=== PATIENT | female | born 1960 | race Hispanic/Latino ===

== ENCOUNTER 2017-05-04 14:07 | Outpatient (CLI) | payer OTHER ==
--- NOTE | 2017-05-04 16:17 | XRay Report ---
XRAY BILATERAL KNEE FOUR VIEWS EACH: 05/04/17 14:07:00 CLINICAL: Bilateral knee pain. FINDINGS: Right: Moderate osteopenia. Status post total knee replacement with normal appearance of the prosthesis. No fracture or dislocation. No joint effusion. Normal soft tissues. Normal soft tissues. Left: Moderate osteopenia. Osteoarthritis of the medial joint space with loss of the joint space and osteophytes. Widening of the lateral joint space. No fracture or dislocation. Patellofemoral joint osteoarthritis with osteophytes. No joint effusion.Normal soft tissues. IMPRESSION: Status post right total knee replacement. 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
== END 2017-05-04 14:08 | disposition home or self-care (01) ==
LOC: SPVIMAG 14:07
PROVIDERS: ATTEND Orthopaedic Surgery Sports Medicine
DX: M17.12 Unilateral primary osteoarthritis, left knee (principal); M85.861 Other specified disorders of bone density and structure, right lower leg; M85.862 Other specified disorders of bone density and structure, left lower leg; Z96.651 Presence of right artificial knee joint

== ENCOUNTER 2017-09-12 12:40 | Outpatient (CLI) | payer OTHER ==
--- NOTE | 2017-09-12 16:54 | XRay Report ---
XRAY LEFT KNEE 3 VIEWS: 09/12/17 12:40:00 CLINICAL: Status post total knee replacement. FINDINGS: Since 05/04/17, a left total knee replacement has been performed. Normal appearance of the prosthesis. No fracture or dislocation. Mild osteopenia. Suspect a small knee joint effusion. The soft tissues are otherwise normal. IMPRESSION: Suspect a small knee joint effusion. Otherwise normal study status post total joint replacement.
== END 2017-09-12 12:41 | disposition home or self-care (01) ==
LOC: SPVIMAG 12:40
PROVIDERS: ATTEND Orthopaedic Surgery Sports Medicine
DX: Z47.1 Aftercare following joint replacement surgery (principal); M85.862 Other specified disorders of bone density and structure, left lower leg; Z96.652 Presence of left artificial knee joint